=== PATIENT | female | born 1970 | race Caucasian/White ===

== ENCOUNTER 2017-02-13 08:21 | Emergency (ER) | payer OTHER ==
--- NOTE | 2017-02-17 17:06 | EKG ---
Test Reason : SYNCOPE Blood Pressure : / mmHG Vent. Rate : 056 BPM Atrial Rate : 056 BPM P-R Int : 000 ms QRS Dur : 078 ms QT Int : 448 ms P-R-T Axes : 000 069 068 degrees QTc Int : 432 ms Poor data quality, interpretation may be adversely affected Junctional rhythm Abnormal ECG Confirmed by SUZY PRICE ([id number]), assignment editor ANGEL PALMA ([id number]) on 02/17/2017 5:06:04 PM Referred By: Confirmed By:SUZY PRICE
== END 2017-02-13 09:30 | disposition home or self-care (01) ==
LOC: ERS 08:21
DX: R55 Syncope and collapse (principal); R19.7 Diarrhea, unspecified; I10 Essential (primary) hypertension; F41.9 Anxiety disorder, unspecified; Z87.891 Personal history of nicotine dependence; Z79.899 Other long term (current) drug therapy
CPT/HCPCS: 93005

== ENCOUNTER 2017-03-14 10:13 | Emergency (ER) | payer OTHER ==
[2017-03-14 11:29] LABS: ALT (SGPT) 32 U/L (8-55); AST (SGOT) 34 U/L (5-34); Albumin 4.4 g/dL (3.5-5.0); Alkaline Phosphatase 87 U/L (40-150); Anion Gap 14 mmol/L (10-20); BUN (Urea Nitrogen) 9 mg/dL (7.0-18.7); Bilirubin, Total 0.4 mg/dL (0.2-1.2); CK (CPK) 56 U/L (29-168); Calc. Creatinine Clearance 0 mL/min (70-130); Calcium 9.3 mg/dL (7.8-10.44); Carbon Dioxide 25 mmol/L (22-29); Chloride 103 mmol/L (98-107); Estimated GFR-MDRD 90; Globulin 3.2 g/dL (2.4-3.5); Glucose 103 mg/dL (70-105); Lipase 14 U/L (8-78); Potassium 3.8 mmol/L (3.5-5.1); Protein, Total 7.6 g/dL (6.0-8.3); Sodium 138 mmol/L (136-145)
[2017-03-14 11:33] LABS: CKMB 0.7 ng/mL (0-6.6); Troponin I Less than 0.010 ng/mL (< 0.028)
[2017-03-14 11:36] LABS: #Basophils 0.1 thou/uL (0.0-0.2); #Eosinphils 0.1 thou/uL (0.0-0.7); #Lymphocytes 0.2 thou/uL (1.20-3.40); #Monocytes 0.8 thou/uL (0.11-0.59); #Neutrophils 7.8 thou/uL (1.40-6.50); %Basophils 1.3 % (0.0-1.0); %Eosinophils 0.7 % (0.0-10.0); %Lymphocytes 2.3 % (21.0-51.0); %Monocytes 8.8 % (0.0-10.0); %Neutrophils 86.9 % (42.0-75.0); Hemoglobin 12.8 g/dL (12.0-16.0); Mean Corpuscular HGB CONC 33.4 g/dL (32.0-36.0); Mean Corpuscular Hemoglobin 32.5 pg (27.0-31.0); Mean Corpuscular Volume 97.2 fl (81.0-99.0); Mean Platelet Volume 7.4 fL (7.4-10.4); Platelet Count 287 thou/uL (130-400); RBC Distribution Width 12.6 % (11.5-14.5); Red Blood Cell (RBC) Count 3.94 mill/uL (4.20-5.40); White Blood Cell (WBC) Count 8.9 thou/uL (4.8-10.8)
--- NOTE | 2017-03-14 11:55 | RAD ---
PORTABLE CHEST: History: Cough, chest tightness. High fever. FINDINGS: Heart size and mediastinum are within normal limits. The lungs are clear of infiltrates. No significa nt bony findings. IMPRESSION: No active intrathoracic disease. POS: [facility]
[2017-03-14] MEDS ORDERED: Acetaminophen 500 MG TAB ONE (12:45)
--- NOTE | 2017-04-07 21:50 | EKG ---
Test Reason : Blood Pressure : / mmHG Vent. Rate : 105 BPM Atrial Rate : 105 BPM P-R Int : 140 ms QRS Dur : 076 ms QT Int : 326 ms P-R-T Axes : 020 068 067 degrees QTc Int : 430 ms Sinus tachycardia Nonspecific ST abnormality Abnormal ECG Confirmed by SUZY PRICE ([id number]), newspaper managing editor ANGEL PALMA ([id number]) on 04/07/2017 9:49:46 PM Referred By: Confirmed By:SUZY PRICE
== END 2017-03-14 12:51 | disposition home or self-care (01) ==
LOC: ERS 10:13
DX: J11.1 Influenza due to unidentified influenza virus with other respiratory manifestations (principal); I10 Essential (primary) hypertension; F41.9 Anxiety disorder, unspecified; Z87.891 Personal history of nicotine dependence
CPT/HCPCS: 36415; 71045; 80053; 82553; 83690; 84484; 85025; 87804; 93005

== ENCOUNTER 2018-02-06 09:15 | Outpatient (CLI) | payer OTHER ==
--- NOTE | 2018-02-07 09:19 | MMO ---
BILATERAL DIGITAL SCREENING MAMMOGRAMS: HISTORY: This 48-year-old female presents for baseline digital screening mammograms. COMPARISON: No prior mammograms available for comparison. This patient's mammogram is interpreted with the assistance of computer-aided detection. FINDINGS: Bilateral breast augmentation prosthesis. Occasional typically benign calcifications. No direct or indirect evidence of malignancy.. IMPRESSION: BI-RADS category 2, benign findings. Continued routine screening. BIRADS 2: Benign Finding(s) Routine annual screening mammography (for women over age 40) POS: [facility]
== END 2018-02-06 09:16 | disposition home or self-care (01) ==
LOC: SCSMAMMO 09:15
PROVIDERS: ATTEND Family Medicine
DX: Z12.31 Encounter for screening mammogram for malignant neoplasm of breast (principal)
CPT/HCPCS: 77067